=== PATIENT | male | born 1980 | race Two or more races ===

== ENCOUNTER 2019-02-23 17:22 | Emergency (ER) | payer SELFPAY ==
[~2019-02-23] VITALS: Ht 162.6 cm; Wt 67.3 kg
[2019-02-23 17:42] VITALS: BP 136/88
[2019-02-23] MEDS ORDERED: ASPI81 PO (18:00)
== END 2019-02-23 20:30 | disposition left against medical advice (07) ==
LOC: EMS 17:23
DX: I10 Essential (primary) hypertension (principal); F17.210 Nicotine dependence, cigarettes, uncomplicated; Z53.21 Procedure and treatment not carried out due to patient leaving prior to being seen by health care provider